=== PATIENT | male | born 1985 | race Caucasian/White ===

== ENCOUNTER 2017-09-15 10:33 | Inpatient (IN) | payer OTHER ==
--- NOTE | 2017-09-15 10:44 | ER Document Report ---
ED Medical Screen (RME) - General Chief Complaint: Abdominal Pain Stated Complaint: ABDOMINAL PAIN Time Seen by Provider: 09/15/17 10:38 Notes: Patient has been having intermittent right lower quadrant and mid abdominal pain crampy in nature that comes and goes. This originally began in the middle of August and then went away it is reoccurred and has been going on and off since Wednesday of this past week. No nausea vomiting fevers. He is on a proton pump inhibitor otherwise did not take any other medications. He still has his appendix. He states that he has not had any black or red stool his last bowel movement was this morning. However, he states that he feels like he has not been as regular as he normally is. I have greeted and performed a rapid initial assessment of this patient. A comprehensive ED assessment and evaluation of the patient, analysis of test results and completion of the medical decision making process will be conducted by additional ED providers. PHYSICAL EXAMINATION: GENERAL: Well-appearing, well-nourished and in no acute distress. HEAD: Atraumatic, normocephalic. EYES: Pupils equal round extraocular movements intact, conjunctiva are normal. ENT: Nares patent NECK: Normal range of motion LUNGS: No respiratory distress ABD: Minor TTP RLQ, Mid abd Musculoskeletal: Normal range of motion NEUROLOGICAL: Normal speech, normal gait. PSYCH: Normal mood, normal affect. SKIN: Warm, Dry, normal turgor, no rashes or lesions noted. TRAVEL OUTSIDE OF THE [place] IN LAST 30 DAYS: No - Related Data Allergies/Adverse Reactions: No Known Allergies Allergy (Unverified 09/15/17 10:34) Past Medical History - Social History Chew tobacco use (# tins/day): No Frequency of alcohol use: None Drug Abuse: None Renal/ Medical History: Denies: Hx Peritoneal Dialysis Physical Exam - Vital signs Vitals: Temp Pulse Resp BP Pulse Ox 98.0 F 99 14 144/80 H 99 09/15/17 10:37 09/15/17 10:37 09/15/17 10:37 09/15/17 10:37 09/15/17 10:37 Course - Vital Signs Vital signs: Temp Pulse Resp BP Pulse Ox 98.0 F 99 14 144/80 H 99 09/15/17 10:37 09/15/17 10:37 09/15/17 10:37 09/15/17 10:37 09/15/17 10:37 Doctor's Discharge - Discharge Referrals: LOCALMD,NO [Primary Care Provider] - Follow up as needed
[2017-09-15 11:04] LABS: ABSOLUTE EOSINOPHILS # (AUTO) 0.3 10^3/uL (0.0-0.6); ABSOLUTE LYMPHOCYTES (AUTO) 2.4 10^3/uL (0.5-4.7); ABSOLUTE MONOCYTES (AUTO) 1.5 10^3/uL (0.1-1.4); ABSOLUTE NEUT (AUTO) 9.5 10^3/uL (1.7-8.2); BASOPHILS % (AUTO) 0.4 % (0-2); EOSINOPHILS % (AUTO) 1.9 % (0-6); HEMOGLOBIN 16.6 g/dL (13.5-17.0); LYMPHOCYTES % (AUTO) 17.3 % (13-45); MEAN CORPUSCULAR HEMOGLOBIN 28.6 pg (27.0-33.4); MEAN CORPUSCULAR HGB CONC 34.6 g/dL (32.0-36.0); MEAN CORPUSCULAR VOLUME 83 fl (80-97); MONOCYTES % (AUTO) 11.2 % (3-13); PLATELET COUNT 305 10^3/uL (150-450); RED BLOOD COUNT 5.82 10^6/uL (4.35-5.55); RED CELL DISTRIBUTION WIDTH 13.4 % (11.5-14.0); SEGMENTED NEUTROPHILS % (AUTO) 69.2 % (42-78); TOTAL CELLS COUNTED % (AUTO) 100 %; WHITE BLOOD COUNT 13.7 10^3/uL (4.0-10.5)
--- NOTE | 2017-09-15 11:09 | ER Document Report ---
ED General - General Chief Complaint: Abdominal Pain Stated Complaint: ABDOMINAL PAIN Time Seen by Provider: 09/15/17 10:38 Information source: Patient Notes: 32-year-old male presents emergency department with complaints of right lower quadrant abdominal pain. It has been present for the last 3 days. He states that his been constant. Pain intensity fluctuates. Denies alleviating or exacerbating factors. Patient denies any fever, chills, nausea, vomiting, diarrhea, constipation. He denies any surgeries on his abdomen. TRAVEL OUTSIDE OF THE [place] IN LAST 30 DAYS: No - HPI Onset: Other - 3 days Onset/Duration: Gradual Quality of pain: Cramping, Sharp, Stabbing, Throbbing Severity: Moderate Associated symptoms: None Exacerbated by: Denies Relieved by: Denies Similar symptoms previously: Yes Recently seen / treated by doctor: No - Related Data Allergies/Adverse Reactions: No Known Allergies Allergy (Unverified 09/15/17 10:34) Past Medical History - Social History Smoking Status: Former Smoker Chew tobacco use (# tins/day): No Frequency of alcohol use: None Drug Abuse: None Family History: Reviewed & Not Pertinent Patient has suicidal ideation: No Patient has homicidal ideation: No Renal/ Medical History: Denies: Hx Peritoneal Dialysis Review of Systems - Review of Systems Constitutional: No symptoms reported EENT: No symptoms reported Cardiovascular: No symptoms reported Respiratory: No symptoms reported Gastrointestinal: Abdominal pain Genitourinary: No symptoms reported Male Genitourinary: No symptoms reported Musculoskeletal: No symptoms reported Skin: No symptoms reported Neurological/Psychological: No symptoms reported -: Yes All other systems reviewed and negative Physical Exam - Vital signs Vitals: Temp Pulse Resp BP Pulse Ox 98.0 F 99 14 144/80 H 99 09/15/17 10:37 09/15/17 10:37 09/15/17 10:37 09/15/17 10:37 09/15/17 10:37 Interpretation: Normal - Notes Notes: PHYSICAL EXAMINATION: GENERAL: Well-appearing, well-nourished and in no acute distress. HEAD: Atraumatic, normocephalic. EYES: Pupils equal round and reactive to light, extraocular movements intact, sclera anicteric, conjunctiva are normal. ENT: Nares patent, oropharynx clear without exudates. Moist mucous membranes. NECK: Normal range of motion, supple without lymphadenopathy LUNGS: Breath sounds clear to auscultation bilaterally and equal. No wheezes rales or rhonchi. HEART: Regular rate and rhythm without murmurs ABDOMEN: Soft, Tenderness to palpation in the Right lower quadrant. No guarding , no rebound. No masses appreciated. Musculoskeletal: Normal range of motion, no pitting or edema. No cyanosis. NEUROLOGICAL: Cranial nerves grossly intact. Normal speech, normal gait. Normal sensory, motor exams PSYCH: Normal mood, normal affect. SKIN: Warm, Dry, normal turgor, no rashes or lesions noted. Course - Re-evaluation Re-evalutation: 09/15/17 13:[address] shows acute appendicitis. Started on zosyn. Patient has drank water in the ER but says that he last ate food yesterday. Patient told not to drink water. Fluids ordered. I spoke with Dr. Best, general surgery. He will evaluate the patient. - Vital Signs Vital signs: Temp Pulse Resp BP Pulse Ox 98.0 F 99 14 144/80 H 99 09/15/17 10:37 09/15/17 10:37 09/15/17 10:37 09/15/17 10:37 09/15/17 10:37 - Laboratory Result Diagrams: 09/15/17 10:50 09/15/17 10:50 Laboratory results interpreted by me: 09/15/17 10:50 WBC 13.7 H RBC 5.82 H Absolute Neutrophils 9.5 H Absolute Monocytes 1.5 H Discharge - Discharge Clinical Impression: Appendicitis Qualifiers: Appendicitis type: acute appendicitis Acute appendicitis type: with localized peritonitis Qualified Code(s): K35.3 - Acute appendicitis with localized peritonitis Condition: Good Disposition: ADMITTED OBSERVATION Admitting Provider: Surgicalist Unit Admitted: OR Referrals: LOCALMD,NO [NO LOCAL MD] - Follow up as needed
--- NOTE | 2017-09-15 11:12 | RADIOLOGY REPORT (SQ) ---
EXAM DESCRIPTION: KUB/ABDOMEN (SINGLE VIEW) COMPLETED DATE/TIME: 09/15/2017 10:59 am REASON FOR STUDY: RLQ pain COMPARISON: None. NUMBER OF VIEWS: One view. TECHNIQUE: Supine radiographic image of the abdomen acquired. LIMITATIONS: None. FINDINGS: BOWEL GAS PATTERN: Normal bowel gas pattern. No dilated loops. CALCIFICATIONS: No suspicious calcifications. SOFT TISSUES: No gross mass or suggestion of organomegaly. HARDWARE: None in the abdomen. BONES: No acute fracture. No worrisome bone lesions. OTHER: No other significant finding. IMPRESSION: NO RADIOGRAPHIC EVIDENCE FOR ACUTE ABDOMINAL DISEASE. TECHNICAL DOCUMENTATION: JOB ID: [id number] [employer]- All Rights Reserved Reading location - IP/workstation name: [email or web address]
[2017-09-15 11:20] LABS: ALANINE AMINOTRANSFERASE 24 U/L (21-72); ALBUMIN 4.7 g/dL (3.5-5.0); ALKALINE PHOSPHATASE 56 U/L (38-126); ANION GAP 12 (5-19); ASPARTATE AMINO TRANSFERASE 25 U/L (17-59); BILIRUBIN,DIRECT 0.4 mg/dL (0.0-0.4); BILIRUBIN,TOTAL 0.6 mg/dL (0.2-1.3); BLOOD UREA NITROGEN 10 mg/dL (7-20); CALCIUM 10.1 mg/dL (8.4-10.2); CARBON DIOXIDE 28 mmol/L (22-30); CHLORIDE 104 mmol/L (98-107); GLUCOSE 93 mg/dL (75-110); LIPASE 52.5 U/L (23-300); POTASSIUM 4.7 mmol/L (3.6-5.0); SODIUM 144.2 mmol/L (137-145)
[2017-09-15 12:06] LABS: APPEARANCE,URINE CLEAR; BILIRUBIN,URINE NEGATIVE (NEGATIVE); COLOR,URINE YELLOW; GLUCOSE, URINE NEGATIVE (NEGATIVE); KETONES,URINE NEGATIVE (NEGATIVE); LEUKOCYTE ESTERASE,URINE NEGATIVE (NEGATIVE); NITRITE,URINE NEGATIVE (NEGATIVE); PROTEIN,URINE NEGATIVE (NEGATIVE); URINE SPECIFIC GRAVITY 1.005; UROBILINOGEN,URINE NEGATIVE mg/dL (<2.0)
[2017-09-15] MEDS ORDERED: PIPERACILLIN/TAZOBACTAM 3.375 GM VIAL IV ONE (13:30)
[2017-09-15] MEDS ORDERED: NORMAL SALINE 1000 ML 1,000 ML IV ONE (13:31)
--- NOTE | 2017-09-15 13:31 | RADIOLOGY REPORT (SQ) ---
EXAM DESCRIPTION: CT ABD/PELVIS WITH IV ONLY COMPLETED DATE/TIME: 09/15/2017 1:03 pm REASON FOR STUDY: RLQ pain COMPARISON: None. TECHNIQUE: CT scan of the abdomen and pelvis performed using helical scanning technique with dynamic intravenous contrast injection. No oral contrast. Images reviewed with lung, soft tissue, and bone windows. Reconstructed coronal and sagittal MPR images reviewed. Delayed images for evaluation of the urinary system also acquired. All images stored on PACS. All CT scanners at this facility use dose modulation, iterative reconstruction, and/or weight based d osing when appropriate to reduce radiation dose to as low as reasonably achievable (ALARA). [facility]: Dose Right [facility]: CareDose [facility]: Dose Right [facility]: Teradose 4D [facility]: Oasys Mobile CONTRAST TYPE AND DOSE: contrast/concentration: Isovue 370.00 mg/ml; Total Contrast Delivered: 100.0 ml; Total Saline Delivered: 72.0 ml RENAL FUNCTION: None required. The patient is less than 50 years old. RADIATION DOSE: CT Rad equipment meets quality standard of care and radiation dose reduction techniq ues were employed. CTDIvol: 21.1 - 21.1 mGy. DLP: 2555 mGy-cm.. LIMITATIONS: None. FINDINGS: LOWER CHEST: No significant findings. No nodules or infiltrates. LIVER: Normal size. No masses. No dilated ducts. SPLEEN: Normal size. No focal lesions. PANCREAS: No masses. No significant calcifications. No adjacent inflammation or peripancreatic fluid collections. Pancreatic duct not dilated. GALLBLADDER: No identified stones by CT criteria. No inflammatory changes to suggest cholecystitis. ADRENAL GLANDS: No significant masses or asymmetry. RIGHT KIDNEY AND URETER: No solid masses. No significant calcifications. No hydronephrosis or hyd roureter. LEFT KIDNEY AND URETER: No solid masses. No significant calcifications. No hydronephrosis or hydr oureter. AORTA AND VESSELS: No aneurysm. No dissection. Renal arteries, SMA, celiac without stenosis. RETROPERITONEUM: No retroperitoneal adenopathy, hemorrhage or masses. BOWEL AND PERITONEAL CAVITY: No masses or inflammatory changes. No free fluid or peritoneal masses. APPENDIX: 2.1 cm appendicolith. Para appendiceal inflammation with dilatation. Acute appendicitis. PELVIS: No mass. No free fluid. Normal bladder. ABDOMINAL WALL: No masses. No hernias. BONES: No significant or acute findings. OTHER: No other significant finding. IMPRESSION: Acute appendicitis with appendicolith. No perforation or abscess. COMMENT: Pertinent findings on the imaging study reported as a CRITICAL RESULT to FORTINO GRAFF MD at13:25 on 09/15/2017. Category of Critical Result: Acute appendicitis . TECHNICAL DOCUMENTATION: JOB ID: [id number] Quality ID # [id number]: Final reports with documentation of one or more dose reduction techniques (e.g., Au tomated exposure control, adjustment of the mA and/or kV according to patient size, use of iterative reconstruction technique) 2010 [employer]- All Rights Reserved Reading location - IP/workstation name: [email or web address]
[2017-09-15] MEDS ORDERED: FENTANYL CITRATE INJ/PF 100 MCG/2 ML AMPUL ONE (14:10)
[2017-09-15] MEDS ORDERED: MIDAZOLAM 2 MG/2 ML INJ ONE (14:11)
[2017-09-15] MEDS ORDERED: HYDROMORPHONE HCL INJ/PF 2 MG/ML AMPULE ONE (14:11)
[2017-09-15] MEDS ORDERED: PROPOFOL INJ 200 MG/20 ML VIAL IV ONE (14:11)
[2017-09-15] MEDS ORDERED: ACETAMINOPHEN 1,000 MG/100 ML RTUPB IV ONE (14:11)
--- NOTE | 2017-09-15 14:20 | PDOC H&P ---
History of Present Illness Admission Date/PCP: 09/15/17 Patient complains of: right lower quadrant pain History of Present Illness: BOBBY LORA is a 32 year old male with a 3 day hx of abdominal pain, diffuse at first, later localized to RLQ, nausea, not vomiting. A CT scan was done today demonstrating an acute non-perforated appendicitis Social History Smoking Status: Former Smoker Frequency of Alcohol Use: Rare Hx Recreational Drug Use: No Family History Family History: Reviewed & Not Pertinent Parental Family History Reviewed: No Children Family History Reviewed: No Sibling(s) Family History Reviewed.: No Medication/Allergy Home Medications: Lansoprazole [Prevacid 24Hr] 15 mg PO Q48H 09/15/17 Allergies/Adverse Reactions: No Known Allergies Allergy (Verified 09/15/17 13:55) Physical Exam Vital Signs: Temp Pulse Resp BP Pulse Ox 98.0 F 99 14 144/80 H 99 09/15/17 10:37 09/15/17 10:37 09/15/17 10:37 09/15/17 10:37 09/15/17 10:37 Intake & Output 09/14/17 09/15/17 09/16/17 06:59 06:59 06:59 Weight 137.2 kg General appearance: PRESENT: no acute distress Head exam: PRESENT: atraumatic Eye exam: PRESENT: EOMI Mouth exam: PRESENT: neck supple Neck exam: PRESENT: full ROM Respiratory exam: PRESENT: clear to auscultation huy Cardiovascular exam: PRESENT: RRR GI/Abdominal exam: PRESENT: soft, tenderness - right lower quadrant Extremities exam: PRESENT: full ROM Musculoskeletal exam: PRESENT: full ROM Skin exam: PRESENT: warm Results Laboratory Results: 09/15/17 10:50 09/15/17 10:50 09/15/17 09/15/17 09/15/17 10:50 10:50 11:55 WBC 13.7 H RBC 5.82 H Hgb 16.6 Hct 48.0 MCV 83 MCH 28.6 MCHC 34.6 RDW 13.4 Plt Count 305 Seg Neutrophils % 69.2 Lymphocytes % 17.3 Monocytes % 11.2 Eosinophils % 1.9 Basophils % 0.4 Absolute Neutrophils 9.5 H Absolute Lymphocytes 2.4 Absolute Monocytes 1.5 H Absolute Eosinophils 0.3 Absolute Basophils 0.0 Sodium 144.2 Potassium 4.7 Chloride 104 Carbon Dioxide 28 Anion Gap 12 BUN 10 Creatinine 0.95 Est GFR ( Amer) > 60 Est GFR (Non-Af Amer) > 60 Glucose 93 Calcium 10.1 Total Bilirubin 0.6 AST 25 ALT 24 Alkaline Phosphatase 56 Total Protein 8.0 Albumin 4.7 Lipase 52.5 Urine Color YELLOW Urine Appearance CLEAR Urine pH 6.0 Ur Specific Mcbee 1.005 Urine Protein NEGATIVE Urine Glucose (UA) NEGATIVE Urine Ketones NEGATIVE Urine Blood NEGATIVE Urine Nitrite NEGATIVE Ur Leukocyte Esterase NEGATIVE Urine WBC (Auto) 0 Urine RBC (Auto) 0 Impressions: KUB X-Ray 09/15/17 10:42 IMPRESSION: NO RADIOGRAPHIC EVIDENCE FOR ACUTE ABDOMINAL DISEASE. Abdomen/Pelvis CT 09/15/17 11:35 IMPRESSION: Acute appendicitis with appendicolith. No perforation or abscess. Assessment & Plan - Diagnosis (1) Appendicitis Qualifiers: Appendicitis type: acute appendicitis Acute appendicitis type: with localized peritonitis Qualified Code(s): K35.3 - Acute appendicitis with localized peritonitis Is this a current diagnosis for this admission?: Yes - Plan Summary Plan Summary: A/ Right lower quadrant pain VSS Slight leukocytosis CT scan A/P significant for acute nonperforated appendicitis P/ NPO IVF IV abx (Zosyn) Plan laparoscopic appendectomy possible open today. Procedure, risks, benefits, complications discussed with the patient, he understands all of those, his questions were answered, and he decides to proceed
[2017-09-15] MEDS ORDERED: BUPIVACAINE HCL 0.5%-EPI 1:200000 INJ/PF 30 ML VIAL ONE (14:34)
[2017-09-15] MEDS ORDERED: PROMETHAZINE HCL INJ 25 MG/1 ML VIAL IV PRN (15:29)
[2017-09-15] MEDS ORDERED: MEPERIDINE HCL/PF INJ 25 MG/1 ML DISP.SYRIN IV PRN (15:29)
[2017-09-15] MEDS ORDERED: FENTANYL CITRATE INJ/PF 100 MCG/2 ML AMPUL IV PRN ×3 (15:29)
[2017-09-15] MEDS ORDERED: MORPHINE SULFATE 10 MG/ML INJ IV PRN (15:29)
[2017-09-15] MEDS ORDERED: DIPHENHYDRAMINE HCL 50 MG/ML VIAL IV PRN (15:29)
[2017-09-15] MEDS ORDERED: SUCCINYLCHOLINE CHLORIDE INJ 200 MG/10 ML VIAL ONE (16:10)
[2017-09-15] MEDS ORDERED: ROCURONIUM BROMIDE INJ 50 MG/5 ML VIAL IV ONE (16:10)
[2017-09-15] MEDS ORDERED: KETOROLAC TROMETHAMINE 60 MG/2 ML SDV ONE (16:27)
--- NOTE | 2017-09-15 16:56 | Operative Report ---
Nonrecallable Operative Report DATE OF SURGERY: 09/15/17 PREOPERATIVE DIAGNOSIS: acute appendicitis POSTOPERATIVE DIAGNOSIS: acute on chronic appendicitis with perforation OPERATION: laparoscopic appendectomy SURGEON: AIDA MAJOR ANESTHESIA: GA - plus 20 mL 1% lidocaine TISSUE REMOVED OR ALTERED: appendix COMPLICATIONS: none ESTIMATED BLOOD LOSS: < 5mL INTRAOPERATIVE FINDINGS: acute on chronically inflamed appendicitis PROCEDURE: see dictation
[2017-09-15] MEDS ORDERED: NORMAL SALINE 1000 ML 1,000 ML IV PRN (17:15)
[2017-09-15] MEDS ORDERED: PIPERACILLIN/TAZOBACTAM 3.375 GM VIAL IV PRN (17:25)
--- NOTE | 2017-09-15 17:30 | OPERATIVE REPORT E ---
Operative Report NAME: BOBBY LORA : 1985 AGE: 32Y DATE OF SURGERY: 09/15/2017 ROOM: ED20 PREOPERATIVE DIAGNOSIS: ACUTE APPENDICITIS. POSTOPERATIVE DIAGNOSIS: ACUTE ON CHRONIC APPENDICITIS with PERFORATION OPERATION: Laparoscopic appendectomy. SURGEON: AIDA MAJOR M.D. SURFACE ROOM SHOP OPTICIAN: None. ANESTHESIA: General plus 20 mL of 1% lidocaine without epinephrine. ESTIMATED BLOOD LOSS: Less than 5 mL. COMPLICATIONS: None. INTRAVENOUS FLUIDS: 750 mL. URINE OUTPUT: Not monitored. DRAINS: Two 15-[place] Apollo drains. INDICATIONS AND FINDINGS: A healthy 32-year-old male, slightly obese, with a history of right upper quadrant pain for about 3 days. The patient reports having had a similar episode of pain 1 month ago, which resolved spontaneously. A CAT scan was done, revealing an acutely inflamed appendix without evidence of perforation or free fluid. The patient was taken to surgery for laparoscopic appendectomy, possible open. PROCEDURE: The procedure was done in the operating room. Patient was placed in supine position. General anesthesia induced by endotracheal intubation. Abdomen prepped and draped in the usual sterile fashion. Incision was made just above the umbilicus. The skin was tented with towel clips. A 5-mm port with Optiview adapter was inserted through the abdominal wall and pneumoperitoneum was obtained. Under direct visualization, a 5-mm port was placed in the right upper quadrant of the abdomen. The 5-mm port through the umbilicus was then removed. It was replaced with a 12-mm port. A 5-mm port was then placed in the left lower quadrant. The patient was placed in a Trendelenburg position with the right side elevated. The right lower quadrant was examined. The appendix was found to be very edematous, thickened and plastered against the right lateral pelvic wall. Very careful dissection was performed by grasping the mesoappendix first and then the appendix itself. Slowly, the appendix was dissected from the right lateral pelvic wall with blunt and sharp dissection and with LigaSure, until the base of the appendix was identified. This was gently dissected bluntly with a peanut dissector and/or with LigaSure. When this was accomplished, it was noted that an opening of the proximal appendix had allowed an appendicolith, which appeared to be an olive pit, being released into the peritoneal cavity. At this point, the appendix was dissected more proximally until a portion of the cecum and appendiceal base were completely visible. An Endo SHARIFA was used to remove the appendix at the base, below the point of perforation. Appendix was placed inside the Endo bag, together with the appendicolith, and both were extracted through the umbilical defect. The CO2 peritoneum was reestablished. The peritoneal cavity was irrigated with about 2 liters of normal saline, which was fully aspirated. Two 15-[place] Apollo drains were inserted into the peritoneal cavity: the first through the left lower quadrant port site, and this drain was placed deep into the pelvis. The second drain was inserted through the right lateral quadrant port site and placed into the right lower quadrant. To accomplish this last drain placement, an additional 5-mm port was utilized. Once this was accomplished, each drain was secured to the skin with nylon suture and connected to bulb suction. The umbilical fascial defect was closed with [id number] 0 Vicryl sutures placed with a fascial closure device. At this point, all instruments were removed. The CO2 pneumoperitoneum was released. All ports were removed. The fascial defects of the umbilicus were closed with the previously placed [id number] 0 Vicryl suture. All skin incisions were then closed with subcuticular running 4-0 Vicryl suture with Dermabond. The patient tolerated the procedure well, extubated, and transferred to the recovery room in satisfactory condition. DICTATING PHYSICIAN: AIDA MAJOR M.D. [id number] PHY#: [id number] ID: [id number] JOB#: [id number] ACCT: [id number] cc:AIDA MAJOR M.D. > MTDD
[2017-09-15] MEDS: MORPHINE SULFATE 10 MG/ML INJ IV PRN ×3 (18:11→22:59)
[2017-09-15] MEDS ORDERED: ACETAMINOPHEN 325 MG TABLET PO PRN (22:26)
[2017-09-15] MEDS ORDERED: ACETAMINOPHEN 325 MG TABLET PO ONE (22:30)
[2017-09-15] MEDS: PIPERACILLIN SODIUM/TAZOBACTAM 3.375 GM in NORMAL SALINE 100 ML IV SCH (23:00)
[2017-09-16] MEDS: MORPHINE SULFATE 10 MG/ML INJ IV PRN ×3 (01:40→06:48)
[2017-09-16] MEDS ORDERED: PIPERACILLIN/TAZOBACTAM 3.375 GM VIAL IV ONE (03:37)
[2017-09-16] MEDS: PIPERACILLIN SODIUM/TAZOBACTAM 3.375 GM in NORMAL SALINE 100 ML IV SCH ×4 (03:57→20:10)
--- NOTE | 2017-09-16 03:59 | RADIOLOGY REPORT (SQ) ---
EXAM DESCRIPTION: XR CHEST 2 VIEWS COMPLETED DATE/TME: 09/15/2017 00:00 CLINICAL HISTORY: 32 years Male, Fever COMPARISON: None. FINDINGS: Moderate lung volume, clear parenchyma, normal cardiac silhouette, and intact bony thorax. IMPRESSION: No acute cardiopulmonary findings.
[2017-09-16] MEDS: ENOXAPARIN SODIUM INJ 40 MG/0.4 ML DISP.SYRIN SUBCUT SCH (05:06)
[2017-09-16 05:39] LABS: HEMATOCRIT 39.5 % (37.9-51.0); HEMOGLOBIN 13.6 g/dL (13.5-17.0); MEAN CORPUSCULAR HEMOGLOBIN 28.7 pg (27.0-33.4); MEAN CORPUSCULAR HGB CONC 34.4 g/dL (32.0-36.0); MEAN CORPUSCULAR VOLUME 83 fl (80-97); PLATELET COUNT 239 10^3/uL (150-450); RED BLOOD COUNT 4.74 10^6/uL (4.35-5.55); RED CELL DISTRIBUTION WIDTH 13.7 % (11.5-14.0); WHITE BLOOD COUNT 13.2 10^3/uL (4.0-10.5)
[2017-09-16 05:50] LABS: ANION GAP 12 (5-19); BLOOD UREA NITROGEN 6 mg/dL (7-20); CALCIUM 8.5 mg/dL (8.4-10.2); CARBON DIOXIDE 23 mmol/L (22-30); CHLORIDE 106 mmol/L (98-107); GLUCOSE 87 mg/dL (75-110); SODIUM 140.6 mmol/L (137-145)
[2017-09-16 05:59] LABS: POTASSIUM 3.8 mmol/L (3.6-5.0)
[2017-09-16] MEDS ORDERED: HYDROMORPHONE HCL INJ/PF 2 MG/ML AMPULE IV PRN (08:33)
[2017-09-16] MEDS ORDERED: ACETAMINOPHEN 325 MG TABLET PO PRN (08:35)
--- NOTE | 2017-09-16 09:45 | PDOC PROGRESS REPORT ---
Subjective Progress Note for:: 09/16/17 Subjective:: c/o incisional pain and phlegm Reason For Visit: APPENDICITIS Physical Exam Vital Signs: Temp Pulse Resp BP Pulse Ox 98.8 F 99 16 118/53 L 95 09/16/17 03:58 09/16/17 03:58 09/16/17 03:58 09/16/17 03:58 09/16/17 03:58 Intake & Output 09/15/17 09/16/17 09/17/17 06:59 06:59 06:59 Intake Total 2192 Output Total 4540 Balance -2348 Weight 140.8 kg General appearance: PRESENT: no acute distress Respiratory exam: PRESENT: clear to auscultation huy Cardiovascular exam: PRESENT: RRR GI/Abdominal exam: PRESENT: normal bowel sounds, soft, tenderness - at incisions ,, other - incisions c/d/i Results Laboratory Results: 09/16/17 04:15 09/16/17 04:15 09/16/17 09/16/17 04:15 04:15 WBC 13.2 H RBC 4.74 Hgb 13.6 D Hct 39.5 MCV 83 MCH 28.7 MCHC 34.4 RDW 13.7 Plt Count 239 Sodium 140.6 Potassium 3.8 Chloride 106 Carbon Dioxide 23 Anion Gap 12 BUN 6 L Creatinine 0.81 Est GFR ( Amer) > 60 Est GFR (Non-Af Amer) > 60 Glucose 87 Calcium 8.5 Impressions: Chest X-Ray 09/15/17 00:00 IMPRESSION: No acute cardiopulmonary findings. KUB X-Ray 09/15/17 10:42 IMPRESSION: NO RADIOGRAPHIC EVIDENCE FOR ACUTE ABDOMINAL DISEASE. Abdomen/Pelvis CT 09/15/17 11:35 IMPRESSION: Acute appendicitis with appendicolith. No perforation or abscess. Assessment & Plan - Diagnosis (1) Appendicitis Qualifiers: Appendicitis type: acute appendicitis Acute appendicitis type: with localized peritonitis Qualified Code(s): K35.3 - Acute appendicitis with localized peritonitis Is this a current diagnosis for this admission?: Yes (2) Acute perforated appendicitis Is this a current diagnosis for this admission?: Yes (3) Chronic appendicitis Is this a current diagnosis for this admission?: Yes - Plan Summary Plan Summary: A/ POD #1 after laparosocpic appendectomy for acute on chronic appendicitis with perforation VSS, temp max 101.5 last evening good UO Santos inserted last evening for dysuria Moderate Apollo drain output (60/80 mL R and L, respectively) WBC still elevated 13K today Ucx and Blood Cx obtained during temperature spike last evening pending Diet tolerated Abdomen soft P/ Santos out tonight decrease IVF rate to 75 mL start po pain meds (Toradol and Tramadol)
[2017-09-16] MEDS ORDERED: NORMAL SALINE 1000 ML 1,000 ML IV PRN (09:49)
[2017-09-16] MEDS: TRAMADOL HCL 50 MG TABLET PO PRN ×3 (11:16→23:51)
[2017-09-16] MEDS ORDERED: PROMETHAZINE HCL INJ 25 MG/1 ML VIAL IV PRN (11:19)
[2017-09-16] MEDS: KETOROLAC TROMETHAMINE 10 MG TABLET PO PRN ×2 (14:07→20:08)
[2017-09-16] MEDS ORDERED: TAMSULOSIN HCL 0.4 MG CAP.SR.24H PO SCH (18:00)
[2017-09-17] MEDS: KETOROLAC TROMETHAMINE 10 MG TABLET PO PRN (02:23)
[2017-09-17] MEDS: PIPERACILLIN SODIUM/TAZOBACTAM 3.375 GM in NORMAL SALINE 100 ML IV SCH ×2 (02:24→08:43)
[2017-09-17] MEDS: ENOXAPARIN SODIUM INJ 40 MG/0.4 ML DISP.SYRIN SUBCUT SCH (05:26)
[2017-09-17] MEDS: TRAMADOL HCL 50 MG TABLET PO PRN (05:32)
[2017-09-17 05:40] LABS: HEMATOCRIT 36.2 % (37.9-51.0); HEMOGLOBIN 12.4 g/dL (13.5-17.0); MEAN CORPUSCULAR HEMOGLOBIN 28.7 pg (27.0-33.4); MEAN CORPUSCULAR HGB CONC 34.4 g/dL (32.0-36.0); MEAN CORPUSCULAR VOLUME 83 fl (80-97); PLATELET COUNT 222 10^3/uL (150-450); RED BLOOD COUNT 4.34 10^6/uL (4.35-5.55); RED CELL DISTRIBUTION WIDTH 13.8 % (11.5-14.0); WHITE BLOOD COUNT 11.7 10^3/uL (4.0-10.5)
[2017-09-17 06:03] LABS: ANION GAP 11 (5-19); BLOOD UREA NITROGEN 5 mg/dL (7-20); CALCIUM 8.7 mg/dL (8.4-10.2); CARBON DIOXIDE 24 mmol/L (22-30); CHLORIDE 108 mmol/L (98-107); GLUCOSE 88 mg/dL (75-110); POTASSIUM 3.6 mmol/L (3.6-5.0); SODIUM 143.2 mmol/L (137-145)
[2017-09-17 09:44] VITALS: BP 122/51
--- NOTE | 2017-09-17 11:43 | PDOC DISCHARGE SUMMARY ---
General - Admit/Disc Date/PCP Admission Date/Primary Care Provider: 09/15/17 14:28 Discharge Date: 09/17/17 - Discharge Diagnosis (1) Appendicitis Is this a current diagnosis for this admission?: Yes (2) Urinary retention Is this a current diagnosis for this admission?: Yes - Additional Information Resuscitation Status: Full Code Discharge Diet: As Tolerated Discharge Activity: Activity As Tolerated Home Medications: Lansoprazole [Prevacid 24Hr] 15 mg PO Q2D 09/15/17 History of Present Illness History of Present Illness: BOBBY LORA is a 32 year old male admitted with acute appendicitis. He was taken to the OR for surgical intervention. This went well, and the pt was transferred to the floor in stable condition. Hospital Course Hospital Course: The pt was found to have urinary retention after surgery and a ely was placed. The pt's ely could not be removed due to continued retention, and it was left in place at discharge. The pt was begun on Flomax as treatment for his retention. The pt continued to improve on the floor. His pain was controlled, he was passing flatus, and he was tolerating a diet. On 09/17/17 it was felt that he had reached maximal hospital benefit and was fit for discharge. Physical Exam Vital Signs: Temp Pulse Resp BP Pulse Ox 98.9 F 89 16 122/51 L 97 09/17/17 09:43 09/17/17 09:43 09/17/17 09:43 09/17/17 09:43 09/17/17 09:43 Intake & Output 09/16/17 09/17/17 09/18/17 06:59 06:59 06:59 Intake Total 2192 6459 Output Total 4540 3130 Balance -2348 3329 Weight 140.8 kg 141 kg Results Laboratory Results: 09/17/17 05:05 09/17/17 05:05 09/17/17 09/17/17 05:05 05:05 WBC 11.7 H RBC 4.34 L Hgb 12.4 L Hct 36.2 L MCV 83 MCH 28.7 MCHC 34.4 RDW 13.8 Plt Count 222 Sodium 143.2 Potassium 3.6 Chloride 108 H Carbon Dioxide 24 Anion Gap 11 BUN 5 L Creatinine 0.84 Est GFR ( Amer) > 60 Est GFR (Non-Af Amer) > 60 Glucose 88 Calcium 8.7 Impressions: Chest X-Ray 09/15/17 00:00 IMPRESSION: No acute cardiopulmonary findings. KUB X-Ray 09/15/17 10:42 IMPRESSION: NO RADIOGRAPHIC EVIDENCE FOR ACUTE ABDOMINAL DISEASE. Abdomen/Pelvis CT 09/15/17 11:35 IMPRESSION: Acute appendicitis with appendicolith. No perforation or abscess. Qualifiers - * PATIENT BEING DISCHARGED WITH ANY OF THE FOLLOWING DIAGNOSIS: No Plan Time Spent: Less than 30 Minutes
== END 2017-09-17 11:50 | disposition home or self-care (01) | DRG 339 ==
LOC: ER 10:33 → EH 14:28 → OBSVTOIN 14:28 → 4N 17:36
PROVIDERS: ADMIT Surgery; ATTEND Surgery
PROC: 0DTJ4ZZ Resection of Appendix, Percutaneous Endoscopic Approach (ICD-10-PCS; principal; 2017-09-15 15:30)
DX: K35.3 Acute appendicitis with localized peritonitis (principal); E66.2 Morbid (severe) obesity with alveolar hypoventilation; Z68.42 Body mass index [BMI] 45.0-49.9, adult; K36 Other appendicitis; R33.9 Retention of urine, unspecified; Z87.891 Personal history of nicotine dependence; Z79.899 Other long term (current) drug therapy
CPT/HCPCS: 36415; 71046; 74018; 74177; 80048; 80053; 81001; 83690; 840; 85025; 85027; 87040; 87086; 88304; 94799; 96365; 99285; J0131; J0330; J1170; J1650; J1885; J2250; J2270; J2543; J2704; J3010; J3490; J7030